=== PATIENT | female | born 1970 | race Caucasian/White ===

== ENCOUNTER 2022-06-07 18:11 | Emergency (ER) | payer OTHER ==
[~2022-06-07] VITALS: Ht 152.4 cm; Wt 72.6 kg
[2022-06-07 18:25] VITALS: BP 135/81
--- NOTE | 2022-06-08 00:35 | NUR ---
Patient called from lobby, no answer.
--- NOTE | 2022-06-08 00:48 | NUR ---
Patient called from lobby, no answer.
--- NOTE | 2022-06-08 01:02 | NUR ---
Patient called from lobby, no answer.
--- NOTE | 2022-06-08 01:03 | NUR ---
PATIENT LEFT WITHOUT BEING SEEN BY . NO FURTHER CARE PROVIDED FOR PATIENT.
== END 2022-06-08 01:03 | disposition left against medical advice (07) ==
LOC: MED 18:11
DX: M25.562 Pain in left knee (principal); M25.561 Pain in right knee; Z53.21 Procedure and treatment not carried out due to patient leaving prior to being seen by health care provider

== ENCOUNTER 2022-06-20 07:20 | Emergency (ER) | payer OTHER ==
[~2022-06-20] VITALS: Ht 160 cm; Wt 72.6 kg
[2022-06-20 07:33] VITALS: BP 130/84
[2022-06-20] MEDS ORDERED: IBUP-2213 PO (08:15)
[2022-06-20] MEDS ORDERED: LID5T TP (08:15)
[2022-06-20] MEDS ORDERED: HYD1C TP (08:15)
--- NOTE | 2022-06-20 08:40 | NUR ---
Patient discharged with v/s stable. Written and verbal after care instructions given. Patient alert, oriented and verbalized understanding of instructions. Ambulatory with steady gait. All questions addressed prior to discharge. ID band removed. Patient advised to follow up with PMD. Rx of Hydrocortisone, Ibuprofen and Lidoderm given. Opportunity to ask questions provided and answered.
--- NOTE | 2022-06-20 08:41 | NUR ---
Chart checked and completed. The patient's care was reviewed and supervised by Eri Maguire RN.
== END 2022-06-20 08:40 | disposition home or self-care (01) ==
LOC: MED 07:20
DX: S16.1XXA Strain of muscle, fascia and tendon at neck level, initial encounter (principal); H00.015 Hordeolum externum left lower eyelid; L23.9 Allergic contact dermatitis, unspecified cause; X58.XXXA Exposure to other specified factors, initial encounter; Y93.89 Activity, other specified; Y92.89 Other specified places as the place of occurrence of the external cause; Y99.8 Other external cause status
CPT/HCPCS: 99283